=== PATIENT | male | born 1965 | race Caucasian/White ===

== ENCOUNTER 2016-12-31 14:09 | Emergency (ER) | payer OTHER ==
[2016-12-31 15:41] LABS: BASOPHIL 0.6 % (0-2); EOSINOPHIL 4.9 % (0-5); HCT 43.8 % (42.0-52.0); HGB 14.6 g/dl (13.2-18.0); LYMPHOCYTE 14.6 % (15-48); MCHC 33.3 g/dL (32.0-36.0); MCV 83.9 fL (78.0-100.0); MONOCYTE 12.8 % (0-12); MPV 9.7 fL (6.0-9.5); NEUTROPHIL 67.1 % (41-80); PLT 315 K/uL (150-400); RBC 5.22 M/uL (4.70-6.00); RDW 14.7 % (11.5-14.0); WBC 6.8 K/uL (4.0-10.5)
[2016-12-31 16:04] LABS: ALBUMIN 3.8 g/dL (3.5-5.0); BILIRUBIN - TOTAL 1.1 mg/dL (0.1-1.0); CREATININE 0.7 mg/dL (0.7-1.2); GLOBULIN (CALCULATION) 2.9 g/dL (2.2-4.2); POTASSIUM 3.9 mmol/L (3.5-5.1); TOTAL PROTEIN 6.7 g/dL (6.4-8.3)
== END 2016-12-31 16:55 | disposition home or self-care (01) ==
LOC: FER 14:09
PROVIDERS: Internal Medicine
DX: L89.219 Pressure ulcer of right hip, unspecified stage (principal); E11.9 Type 2 diabetes mellitus without complications; I10 Essential (primary) hypertension; Z79.84 Long term (current) use of oral hypoglycemic drugs; Z79.899 Other long term (current) drug therapy
CPT/HCPCS: 36415; 80053; 85025; 87070; 87075; 87077; 87186; 87205; 99283; A6197

== ENCOUNTER 2020-10-30 08:49 | Emergency (ER) | payer MEDICARE, OTHER ==
[2020-10-30 09:23] LABS: BASOPHIL 0.2 % (0-2); EOSINOPHIL 0 % (0-5); HCT 51.1 % (42.0-52.0); HGB 17.3 g/dl (13.2-18.0); LYMPHOCYTE 2.1 % (15-48); MCH 30.9 pg (25.0-31.0); MCHC 33.9 g/dL (32.0-36.0); MCV 91.3 fL (78.0-100.0); MONOCYTE 2.2 % (0-12); MPV 11.1 fL (6.0-9.5); NRBC 0; PLT 234 K/uL (150-400); RDW 13.3 % (11.5-14.0); WBC 19.1 K/uL (4.0-10.5)
[2020-10-30 09:24] LABS: NEUTROPHIL 95.1 % (41-80)
[2020-10-30 09:36] LABS: ALBUMIN 4.2 g/dL (3.4-5.0); BILIRUBIN - TOTAL 0.7 mg/dL (0.2-1.0); BUN/CREAT RATIO (CALC) 28.7 RATIO; CREATININE 0.87 mg/dL (0.67-1.17); GLOBULIN (CALCULATION) 4.3 g/dL; POTASSIUM 4.1 mmol/L (3.5-5.1); TOTAL PROTEIN 8.5 g/dL (6.4-8.2)
[2020-10-30 10:03] LABS: LACTIC ACID 3.9 mmol/L (0.4-1.9)
[2020-10-30 10:21] LABS: INR 1.18 (0.9-1.2); PROTHROMBIN TIME 14.2 SECONDS (11.4-13.6)
[2020-10-30 13:51] LABS: BILIRUBIN NEGATIVE (NEGATIVE); BLOOD TRACE-INTACT Ery/uL (NEGATIVE); CLARITY CLEAR (CLEAR); COLOR YELLOW (YELLOW); GLUCOSE (U) NORMAL (NORMAL); LEUKOCYTES NEGATIVE Leu/uL (NEGATIVE); NITRITE NEGATIVE (NEGATIVE); PROTEIN 1+ mg/dL (NEGATIVE); UROBILINOGEN 0.2 mg/dL (0.2-1.0)
[2020-10-30 13:59] LABS: BACTERIA TRACE; URINARY RBC RARE
== END 2020-10-30 18:25 | disposition other institution (70) ==
LOC: FER 08:49
PROVIDERS: Emergency Medicine
DX: K56.609 Unspecified intestinal obstruction, unspecified as to partial versus complete obstruction (principal); D72.829 Elevated white blood cell count, unspecified; R74.02 Elevation of levels of lactic acid dehydrogenase [LDH]; K76.89 Other specified diseases of liver; I10 Essential (primary) hypertension; G47.30 Sleep apnea, unspecified; H54.7 Unspecified visual loss; Z90.49 Acquired absence of other specified parts of digestive tract; Z87.19 Personal history of other diseases of the digestive system; Z79.899 Other long term (current) drug therapy; Z99.89 Dependence on other enabling machines and devices; Z20.822 Contact with and (suspected) exposure to COVID-19; R11.11 Vomiting without nausea
CPT/HCPCS: 36415; 71045; 80053; 81001; 83605; 83690; 85025; 85610; 87040; 93005; J2270; J2405; J2543; J7030; J7040; Q9967; U0002

== ENCOUNTER → 2021-12-27 | Day surgery (SDC) | payer MEDICARE, OTHER ==
[~2021-12-27] VITALS: Ht 170.2 cm; Wt 99.8 kg
[~2021-12-27] MED LIST: ABILIFY5 M1 PO; DAILY VALUE1 EACH PO; MAG-OXIDE 400M400 MG PO; NEURONTIN300 M1 PO; POTASSIUM PO; PRINIVIL20 MG PO; PROZAC20 MG PO; TRAZODONE HCL150 MG PO; VITAMIN D350 MC4 PO
[2021-12-27 08:14] LABS: HCT 48.3 % (42.0-52.0); HGB 16.4 g/dl (13.2-18.0); MCH 30.8 pg (25.0-31.0); MCV 90.6 fL (78.0-100.0); MPV 10.6 fL (6.0-9.5); RBC 5.33 M/uL (4.70-6.00); RDW 13.2 % (11.5-14.0); WBC 10.5 K/uL (4.0-10.5)
[2021-12-27 08:42] LABS: ALBUMIN 3.6 g/dL (3.4-5.0); BILIRUBIN - TOTAL 0.4 mg/dL (0.2-1.0); BUN/CREAT RATIO (CALC) 19.3 RATIO; CREATININE 0.83 mg/dL (0.67-1.17); GLOBULIN (CALCULATION) 3.9 g/dL; POTASSIUM 4.3 mmol/L (3.5-5.1); TOTAL PROTEIN 7.5 g/dL (6.4-8.2)
== END | disposition home or self-care (01) ==
LOC: FAS 07:35
PROVIDERS: Surgery
DX: Z12.11 Encounter for screening for malignant neoplasm of colon (principal); I10 Essential (primary) hypertension; F20.9 Schizophrenia, unspecified; G47.30 Sleep apnea, unspecified; Z99.89 Dependence on other enabling machines and devices; Z79.899 Other long term (current) drug therapy
CPT/HCPCS: 36415; 80053; J1610; J2250; J2704; J7120